=== PATIENT | female | born 1930 | race Two or more races ===

== ENCOUNTER 2017-01-20 20:04 | Observation (INO) | payer MEDICAID, MEDICARE, OTHER ==
[~2017-01-20] VITALS: Ht 154.9 cm; Wt 79.0 kg
[2017-01-20] MEDS ORDERED: ONDANSETRON HCL 4 MG/2 ML VIAL IV ONE (21:15)
[2017-01-20] MEDS ORDERED: ACETAMINOPHEN 325 MG TAB PO ONE (21:30)
[2017-01-20 22:13] LABS: Basophils # (auto) 0 uL; Basophils % (auto) 0.3 % (0.0-2.0); CONDITION Y; Eosinophils # (auto) 0.1 uL; Eosinophils % (auto) 1.1 % (0.0-7.0); Hematocrit 36.6 % (36.0-46.0); Hemoglobin 12.3 g/dL (12.2-16.2); Lymphocytes % (auto) 17.4 % (10.0-50.0); Mean Corpuscular Hemoglobin 29.9 pg (28.0-32.0); Mean Corpuscular Hgb Conc. 33.5 g/dL (32.0-36.0); Mean Corpuscular Volume 89.2 fL (80.0-100.0); Mean Platelet Volume 7.9 fL (7.4-10.4); Monocytes # (auto) 0.8 uL; Monocytes % (auto) 7.4 % (0.0-12.0); Neutrophils # (auto) 8.5 uL; Neutrophils % (auto) 73.8 % (37.0-80.0); Platelet Count (auto) 284 10^3/uL (140-450); Red Cell Distribution Width 14.7 % (11.6-16.0); White Blood Cell 11.5 10^3/uL (4.4-10.8)
[2017-01-20 22:24] LABS: INR 0.95 (0.9-1.15); Partial Thromboplastin Time 25.4 sec (22.64-33.71); Prothrombin Time 10.4 sec (9.37-12.3)
[2017-01-20 22:47] LABS: Albumin 3.5 g/dL (3.4-5.0); BUN/Creatinine Ratio 22.2; Bilirubin, Total 0.2 mg/dL (0.2-1.0); Calcium 8.4 mg/dL (8.5-10.1); Magnesium 2.4 mg/dL (1.6-2.6); Total Protein 7.2 g/dL (6.4-8.2)
[2017-01-21] MEDS ORDERED: LORazepam 0.5 MG TAB ONE (03:52)
[2017-01-21] MEDS ORDERED: LORazepam 0.5 MG TAB PO ONE (04:15)
[2017-01-21 06:46] VITALS: BP 122/82
== END 2017-01-21 03:37 | disposition home or self-care (01) | DRG 103 ==
LOC: EDBD 20:04 → ER 20:08 → OVERFLOW 21:08 → ER 01-21 03:37
PROVIDERS: ADMIT Family Medicine; ATTEND Family Medicine
DX: R51 Headache (principal); I10 Essential (primary) hypertension; R11.2 Nausea with vomiting, unspecified; F41.9 Anxiety disorder, unspecified; E78.5 Hyperlipidemia, unspecified
CPT/HCPCS: 36415; 70450; 71010; 80053; 82150; 83690; 83735; 84484; 85025; 85610; 85730; 96374; 99285; G0378; J2405; 93005

== ENCOUNTER 2018-04-05 16:30 | Emergency (ER) | payer OTHER ==
[2018-04-05 17:47] LABS: Urine Bacteria FEW /hpf (None Seen); Urine Blood Negative /uL (Negative); Urine Specific Gravity 1.017 (1.001-1.035); Urine WBC 3 /hpf (0 - 5)
[2018-04-05 18:03] LABS: Basophils # (auto) 0.1 uL; Basophils % (auto) 0.8 % (0.0-2.0); Eosinophils # (auto) 0.1 uL; Eosinophils % (auto) 1.6 % (0.0-7.0); Lymphocytes # (auto) 1.1 uL; Lymphocytes % (auto) 14.3 % (10.0-50.0); Mean Corpuscular Hemoglobin 30.4 pg (28.0-32.0); Mean Corpuscular Hgb Conc. 33.4 g/dL (32.0-36.0); Mean Corpuscular Volume 90.8 fL (80.0-100.0); Monocytes # (auto) 0.6 uL; Neutrophils # (auto) 6.1 uL; Neutrophils % (auto) 75.3 % (37.0-80.0); Platelet Count (auto) 298 10^3/uL (140-450); Red Blood Cells 3.96 10^6/uL (4.0-5.20); Red Cell Distribution Width 14.4 % (11.8-14.3); White Blood Cell 8.1 10^3/uL (4.4-10.8)
[2018-04-05 18:23] LABS: Alanine Aminotransferase 21 U/L (13-56); Albumin 3.2 g/dL (3.4-5.0); Anion Gap 12 (5-15); Aspartate Aminotransferase 18 U/L (15-37); BUN/Creatinine Ratio 13.3; Blood Urea Nitrogen 12 mg/dL (7-18); Calcium 8.3 mg/dL (8.5-10.1); Carbon Dioxide 21 mmol/L (21-32); Chloride 102 mmol/L (98-107); GFR African American 76 mL/min; GFR Non-African American 63 mL/min; Glucose 109 mg/dL (74-106); Sodium 135 mmol/L (136-145)
[2018-04-05 18:28] LABS: Alkaline Phosphatase 95 U/L (45-117); Bilirubin, Total 0.4 mg/dL (0.2-1.0); Total Protein 7.2 g/dL (6.4-8.2)
[2018-04-05] MEDS ORDERED: ACETAMINOPHEN 325 MG TAB PO ONE (18:30)
[2018-04-05 19:34] VITALS: BP 147/62
== END 2018-04-05 21:10 | disposition home or self-care (01) ==
LOC: EDBD 16:30 → ER 16:30
DX: F41.9 Anxiety disorder, unspecified (principal); N39.0 Urinary tract infection, site not specified; E78.5 Hyperlipidemia, unspecified; I10 Essential (primary) hypertension
CPT/HCPCS: 36415; 71045; 80053; 81001; 83735; 84484; 85025; 93005